=== PATIENT | female | born 1935 | race Hispanic/Latino ===

== ENCOUNTER 2017-05-11 22:26 | Emergency (ER) | payer MEDICARE ==
[~2017-05-11] VITALS: Ht 157.5 cm; Wt 59.9 kg
[~2017-05-11 22:26] MED LIST: MACROBID 100 M100 MG PO
[2017-05-11 23:27] LABS: STREPTOCOCCUS GRP A ANTIGEN NEGATIVE (NEGATIVE)
[2017-05-11 23:36] LABS: INFLUENZAE A&B ANTIGEN (RAPID) NEGATIVE (NEGATIVE)
--- NOTE | 2017-05-12 00:25 | Diagnostic Imaging Report ---
EXAMINATION: CHEST 2 VIEWS INDICATION: Cough, congestion COMPARISON: None FINDINGS: TUBES and LINES: None. LUNGS: Lungs are well inflated. Lungs are clear. There is no evidence of pneumonia or pulmonary edema. PLEURA: No pleural effusion or pneumothorax. HEART AND MEDIASTINUM: The cardiomediastinal silhouette is unremarkable. There are atherosclerotic calcifications within the aorta. BONES AND SOFT TISSUES: No acute osseous lesion. 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 Soft tissues are unremarkable. UPPER ABDOMEN: No free air under the diaphragm. IMPRESSION: No acute thoracic abnormality. Signed by: Dr. Ellis Herrmann M.D. on 05/12/2017 12:21 AM
[2017-05-12 00:56] LABS: BILIRUBIN,URINE NEGATIVE (NEGATIVE); KETONES,URINE NEGATIVE (NEGATIVE); LEUKOCYTE ESTERASE ,URINE 2+ (NEGATIVE); NITRITE,URINE NEGATIVE (NEGATIVE); PROTEIN,URINE DIPSTICK NEGATIVE (NEGATIVE); URINE UROBILINOGEN 0.2 mg/dL (0.2 - 1)
[2017-05-12 00:57] LABS: CLARITY,URINE SL CLOUDY (CLEAR); COLOR,URINE YELLOW (YELLOW)
[2017-05-12 01:04] LABS: BACTERIA,URINE MODERATE /HPF; EPITHELIAL CELLS,URINE RARE /LPF; WBC,URINE (MAN) >50 /HPF (0-5)
[2017-05-12] MEDS ORDERED: CEFTRIAXONE SOD 1 GM VIAL IM ONE (02:15)
[2017-05-12] MEDS ORDERED: LIDOCAINE HCL 1% LOCAL INJ 20 ML VIAL ONE (02:25)
== END 2017-05-12 03:08 | disposition home or self-care (01) ==
LOC: ER 22:26
DX: R50.9 Fever, unspecified (principal); N30.91 Cystitis, unspecified with hematuria
CPT/HCPCS: 71046; 81001; 83518; 87070; 87400; 96372; 99283; J0696; J2001

== ENCOUNTER → 2018-02-06 | Day surgery (SDC) | payer MEDICARE ==
[2018-02-04 10:54] LABS: BASOPHILS % 0.5 % (0.0-1.0); EOSINOPHILS % 0.6 % (0.0-6.0); LYMPHOCYTES # (AUTO) 1.8 (1.0-3.2); LYMPHOCYTES % 29.2 % (18.0-39.1); MEAN CORPUSCULAR HEMOGLOBIN 31.2 pg (28-32); MEAN CORPUSCULAR HGB CONC 32.5 g/dL (31-35); MEAN CORPUSCULAR VOLUME 95.9 fL (81-99); MONOCYTES # (AUTO) 0.3 (0.2-0.8); MONOCYTES % 4.9 % (4.4-11.3); NEUTROPHILS % 64.6 % (38.7-80.0); PLATELET COUNT 218 x10e3/uL (140-360); RED BLOOD COUNT 4.17 x10e6/uL (3.6-5.1)
[~2018-02-06] MED LIST changes: +FENTANYL CITRATE/PF 100MCG/2 ML INJ ONE; +LEVOTHYROXINE50 MCG PO; +LIDOCAINE HCL 2% LOCAL INJ 5 ML SDV VIAL INJ ONE; +LOSARTAN POTAS100 MG PO; +PROPOFOL IV EMULSION 10 MG/ML 20 ML VIAL ONE; +ULTRAM50 MG PO
--- OUTSIDE RECORDS SUMMARY | 2018-02-06 05:57 | XMS REPORT ---
Author Author [facility] [place] Address Unknown Phone Unavailable Care Team Providers Care Senior Policy Associate Name Role Phone Lizabeth VELÁZQUEZ Unavailable Unavailable Problems This patient has no known problems. Allergies, Adverse Reactions, Alerts This patient has no known allergies or adverse reactions. Medications This patient has no known medications. Results Test Description Test Time Test Comments Text Results Atomic Results Result Comments CHEST 2 VIEWS [place] [address] Patient Name: ELVI WASSERMAN MR #: [id number] : 1935 Age/Sex: 81/F Req #: [id number] Adm Physician: Ordered by: CHELSEA VELÁZQUEZ MD Report #: [id number] Location: ER Room/Bed: Procedure: [id number] DX/CHEST 2 VIEWS Exam Date: 05/12/17 Exam Time: 0000 REPORT STATUS: Signed EXAMINATION: CHEST 2 VIEWS INDICATION: Cough, congestion COMPARISON: None FINDINGS: TUBES and LINES: None. LUNGS: Lungs are well inflated. Lungs are clear. There is no evidence of pneumonia or pulmonary edema. PLEURA: No pleural effusion or pneumothorax. HEART AND MEDIASTINUM: The cardiomediastinal silhouette is unremarkable. There are atherosclerotic calcifications within the aorta. BONES AND SOFT TISSUES: No acute osseous lesion. 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 Soft tissues are unremarkable. UPPER ABDOMEN: No free air under the diaphragm. IMPRESSION: No acute thoracic abnormality. Signed by: Dr. Ellis Herrmann M.D. on 05/12/2017 12:21 AM Dictated By: ELLIS VALDEZ MD Transcribed By: MORIS on 05/12/1720 COPY TO: CHELSEA VELÁZQUEZ MD
[2018-02-06 08:35] VITALS: BP 182/67
== END | disposition home or self-care (01) ==
LOC: OR 05:55
PROVIDERS: ATTEND Internal Medicine Gastroenterology
DX: K52.9 Noninfective gastroenteritis and colitis, unspecified (principal); K44.9 Diaphragmatic hernia without obstruction or gangrene; K22.70 Barrett's esophagus without dysplasia; K29.50 Unspecified chronic gastritis without bleeding; K31.9 Disease of stomach and duodenum, unspecified; K29.80 Duodenitis without bleeding; D12.4 Benign neoplasm of descending colon; D12.3 Benign neoplasm of transverse colon; K64.4 Residual hemorrhoidal skin tags; K57.30 Diverticulosis of large intestine without perforation or abscess without bleeding; K64.8 Other hemorrhoids; R63.4 Abnormal weight loss; I11.0 Hypertensive heart disease with heart failure; I50.9 Heart failure, unspecified; I25.119 Atherosclerotic heart disease of native coronary artery with unspecified angina pectoris; E03.9 Hypothyroidism, unspecified; Z01.810 Encounter for preprocedural cardiovascular examination; Z01.812 Encounter for preprocedural laboratory examination; Z95.0 Presence of cardiac pacemaker
CPT/HCPCS: 36415; 43239; 45380; 45385; 85025; 88305; 88312; 93005; J2001; J2704

== ENCOUNTER 2020-12-11 15:31 | Inpatient (IN) | payer MEDICARE ==
[~2020-12-11] VITALS: Ht 157.5 cm; Wt 59.9 kg
[~2020-12-11 15:31] MED LIST changes: -FENTANYL CITRATE/PF 100MCG/2 ML INJ ONE; -LIDOCAINE HCL 2% LOCAL INJ 5 ML SDV VIAL INJ ONE; -PROPOFOL IV EMULSION 10 MG/ML 20 ML VIAL ONE
[2020-12-11] MEDS ORDERED: ATORVASTATIN CA20 MG PO (15:45)
[2020-12-11] MEDS ORDERED: METOPROLOL TART25 MG PO (15:45)
[2020-12-11] MEDS ORDERED: BACTRIM DS TAB1 EACH PO (15:45)
[2020-12-11 16:03] LABS: BASOPHILS % 0.2 % (0.0-1.0); EOSINOPHILS % 0.1 % (0.0-6.0); HEMATOCRIT 33.4 % (34.2-44.1); HEMOGLOBIN 10.6 g/dL (12.0-16.0); LYMPHOCYTES % 5.9 % (18.0-39.1); MEAN CORPUSCULAR HEMOGLOBIN 28.7 pg (28-32); MEAN CORPUSCULAR HGB CONC 31.7 g/dL (31-35); MEAN CORPUSCULAR VOLUME 90.5 fL (81-99); MONOCYTES # (AUTO) 0.8 (0.2-0.8); MONOCYTES % 5.1 % (4.4-11.3); NEUTROPHILS # (AUTO) 14.2 (2.1-6.9); NEUTROPHILS % 88.2 % (38.7-80.0); PLATELET COUNT 470 x10e3/uL (140-360); RED BLOOD COUNT 3.69 x10e6/uL (3.6-5.1); RED CELL DISTRIBUTION WIDTH 14.1 % (11.7-14.4)
[2020-12-11 16:14] LABS: INR 1.08; PROTHROMBIN TIME 14.2 seconds (11.9-14.5)
[2020-12-11 16:15] LABS: PARTIAL THROMBOPLASTIN TIME 31.3 seconds (23.8-35.5)
[2020-12-11 17:11] LABS: ALBUMIN 2.8 g/dL (3.5-5.0); ALBUMIN/GLOBULIN RATIO 0.9 (0.8-2.0); ANION GAP 16.1 mmol/L (8-16); CALCIUM 8.4 mg/dL (8.4-10.2); CREATININE, SERUM 0.55 mg/dL (0.57-1.11); POTASSIUM 3.1 mmol/L (3.5-5.1)
[2020-12-11] MEDS ORDERED: HEPARIN SOD (PORCINE) 5,000 UNIT/ML VIAL IV ONE ×2 (18:00→19:45)
[2020-12-11] MEDS ORDERED: MORPHINE SULFATE INJ 2 MG/ML SYR IV PRN (18:15)
[2020-12-11] MEDS ORDERED: ONDANSETRON HCL INJ 2MG/ML 2ML 2 MG/ML VIAL IV PRN (18:15)
[2020-12-11] MEDS ORDERED: KCL 20MEQ/.9 SOD CHL 1,000 ML IV ONE (18:15)
[2020-12-11] MEDS: LINEZOLID 600 MG/D5W 300ML 300 ML IV SCH (18:34)
[2020-12-11 18:40] LABS: CREATINE KINASE MB 1.5 ng/mL (0-5.0)
[2020-12-11] MEDS: HEPARIN 25,000 UNIT 1,000 UNIT in DEXTROSE 5% 250ML 250 ML IV SCH (18:52)
[2020-12-11] MEDS: FAMOTIDINE 20 MG/2 ML VIAL IV SCH (19:01)
[2020-12-11 19:15] LABS: CLARITY,URINE HAZY (CLEAR); COLOR,URINE YELLOW (YELLOW); KETONES,URINE 2+ (NEGATIVE); LEUKOCYTE ESTERASE ,URINE NEGATIVE (NEGATIVE); NITRITE,URINE NEGATIVE (NEGATIVE); PROTEIN,URINE DIPSTICK NEGATIVE (NEGATIVE); URINE UROBILINOGEN 2 mg/dL (0.2 - 1)
[2020-12-11 19:17] LABS: BACTERIA,URINE FEW /HPF; EPITHELIAL CELLS,URINE FEW /LPF; RENAL EPITHELIAL CELLS,URINE FEW
[2020-12-11] MEDS: PIPERACILLIN/TAZOBACTAM 3.375 GM in SODIUM CHLORIDE 0.9% 50ML 50 ML IV SCH ×2 (19:24→23:31)
[2020-12-11] MEDS ORDERED: HEPARIN 25,000 UNIT DRIP IV ONE (19:43)
[2020-12-11 20:26] VITALS: BP 127/55
[2020-12-11 20:27] VITALS: BP 127/55
[2020-12-11 21:59] VITALS: BP 127/55
[2020-12-12] VITALS (8 sets, daily range): BP systolic 123–153; BP diastolic 55–69
[2020-12-12 00:58] LABS: CREATINE KINASE MB 1.2 ng/mL (0-5.0)
[2020-12-12] MEDS: FAMOTIDINE 20 MG/2 ML VIAL IV SCH ×2 (05:36→17:11)
[2020-12-12] MEDS: PIPERACILLIN/TAZOBACTAM 3.375 GM in SODIUM CHLORIDE 0.9% 50ML 50 ML IV SCH ×3 (05:36→17:11)
[2020-12-12 08:39] LABS: BASOPHILS % 0.4 % (0.0-1.0); EOSINOPHILS % 0.2 % (0.0-6.0); LYMPHOCYTES # (AUTO) 1.1 (1.0-3.2); LYMPHOCYTES % 11.1 % (18.0-39.1); MEAN CORPUSCULAR HEMOGLOBIN 28.3 pg (28-32); MEAN CORPUSCULAR HGB CONC 32.1 g/dL (31-35); MEAN CORPUSCULAR VOLUME 88.1 fL (81-99); MONOCYTES # (AUTO) 0.7 (0.2-0.8); MONOCYTES % 6.5 % (4.4-11.3); NEUTROPHILS # (AUTO) 8.2 (2.1-6.9); NEUTROPHILS % 81.2 % (38.7-80.0); PLATELET COUNT 322 x10e3/uL (140-360); RED BLOOD COUNT 3.18 x10e6/uL (3.6-5.1)
[2020-12-12] MEDS: ASPIRIN 81 MG ENTERIC COATED PO SCH (09:00)
[2020-12-12 09:02] LABS: ALBUMIN 2.4 g/dL (3.5-5.0); ALBUMIN/GLOBULIN RATIO 0.9 (0.8-2.0); ANION GAP 12.5 mmol/L (8-16); CHOL/HDL RATIO 2.2 (3.0-3.6); CREATININE, SERUM 0.55 mg/dL (0.57-1.11); POTASSIUM 3.5 mmol/L (3.5-5.1)
[2020-12-12 09:09] LABS: CREATINE KINASE MB 1.1 ng/mL (0-5.0)
[2020-12-12] MEDS: LINEZOLID 600 MG/D5W 300ML 300 ML IV SCH ×2 (09:24→21:00)
[2020-12-12 14:45] LABS: CREATINE KINASE MB 1.1 ng/mL (0-5.0)
[2020-12-12] MEDS: HEPARIN 25,000 UNIT 1,000 UNIT in DEXTROSE 5% 250ML 250 ML IV SCH (23:00)
[2020-12-13] VITALS (7 sets, daily range): BP systolic 136–179; BP diastolic 59–87
[2020-12-13] MEDS: PIPERACILLIN/TAZOBACTAM 3.375 GM in SODIUM CHLORIDE 0.9% 50ML 50 ML IV SCH ×4 (00:38→17:13)
[2020-12-13] MEDS: FAMOTIDINE 20 MG/2 ML VIAL IV SCH ×2 (05:40→17:13)
[2020-12-13] MEDS ORDERED: SODIUM CHLORIDE 0.9% 250ML 250 ML ONE (06:34)
[2020-12-13] MEDS: LINEZOLID 600 MG/D5W 300ML 300 ML IV SCH ×2 (09:00→21:41)
[2020-12-13] MEDS: ASPIRIN 81 MG ENTERIC COATED PO SCH (09:01)
[2020-12-13] MEDS: HEPARIN 25,000 UNIT 1,000 UNIT in DEXTROSE 5% 250ML 250 ML IV SCH (18:23)
[2020-12-14] VITALS (7 sets, daily range): BP systolic 127–154; BP diastolic 63–115
[2020-12-14] MEDS: PIPERACILLIN/TAZOBACTAM 3.375 GM in SODIUM CHLORIDE 0.9% 50ML 50 ML IV SCH ×5 (00:34→23:54)
[2020-12-14] MEDS: FAMOTIDINE 20 MG/2 ML VIAL IV SCH ×2 (05:11→17:41)
[2020-12-14 05:48] LABS: BASOPHILS % 0.5 % (0.0-1.0); EOSINOPHILS # (AUTO) 0.1 (0.0-0.4); EOSINOPHILS % 0.9 % (0.0-6.0); HEMATOCRIT 31.5 % (34.2-44.1); HEMOGLOBIN 9.8 g/dL (12.0-16.0); LYMPHOCYTES # (AUTO) 1.1 (1.0-3.2); LYMPHOCYTES % 14.2 % (18.0-39.1); MEAN CORPUSCULAR HGB CONC 31.1 g/dL (31-35); MONOCYTES # (AUTO) 0.5 (0.2-0.8); MONOCYTES % 5.9 % (4.4-11.3); NEUTROPHILS # (AUTO) 6.1 (2.1-6.9); NEUTROPHILS % 78.1 % (38.7-80.0); PLATELET COUNT 286 x10e3/uL (140-360); RED CELL DISTRIBUTION WIDTH 14.1 % (11.7-14.4)
[2020-12-14 06:03] LABS: ALANINE AMINOTRANSFERASE 11 IU/L (0-55); ALBUMIN 2.5 g/dL (3.5-5.0); ALBUMIN/GLOBULIN RATIO 0.9 (0.8-2.0); ALKALINE PHOSPHATASE 61 IU/L (40-150); ANION GAP 13.1 mmol/L (8-16); BLOOD UREA NITROGEN < 5 mg/dL (7-26); CALCIUM 8.4 mg/dL (8.4-10.2); CARBON DIOXIDE 23 mmol/L (22-29); CHLORIDE 103 mmol/L (98-107); CREATININE, SERUM 0.52 mg/dL (0.57-1.11); EST GLOMERULAR FILTRATION RATE 112 ML/MIN (60-); GLUCOSE 78 mg/dL (74-118); MAGNESIUM 1.8 MG/DL (1.3-2.1); POTASSIUM 3.1 mmol/L (3.5-5.1); SODIUM 136 mmol/L (136-145)
[2020-12-14 06:04] LABS: BUN/CREATININE RATIO 10 (6-25)
[2020-12-14] MEDS: ASPIRIN 81 MG ENTERIC COATED PO SCH (09:00)
[2020-12-14] MEDS ORDERED: PIPERACILLIN/TAZOBACTAM 3.375 GM VIAL ONE (10:50)
[2020-12-14] MEDS ORDERED: SODIUM CHLORIDE 0.9% 50ML 50 ML ONE (10:50)
[2020-12-14] MEDS ORDERED: HYDROMORPHONE 1MG/1ML INJ ONE (11:39)
[2020-12-14] MEDS: LINEZOLID 600 MG/D5W 300ML 300 ML IV SCH ×2 (12:26→20:47)
[2020-12-15] VITALS (9 sets, daily range): BP systolic 98–150; BP diastolic 56–78
[2020-12-15 05:36] LABS: BASOPHILS % 0.1 % (0.0-1.0); HEMATOCRIT 29.1 % (34.2-44.1); HEMOGLOBIN 9.2 g/dL (12.0-16.0); MEAN CORPUSCULAR HEMOGLOBIN 28.6 pg (28-32); MEAN CORPUSCULAR HGB CONC 31.6 g/dL (31-35); MEAN CORPUSCULAR VOLUME 90.4 fL (81-99); MONOCYTES # (AUTO) 0.4 (0.2-0.8); MONOCYTES % 5.4 % (4.4-11.3); NEUTROPHILS # (AUTO) 5.7 (2.1-6.9); NEUTROPHILS % 80.1 % (38.7-80.0); PLATELET COUNT 261 x10e3/uL (140-360); RED BLOOD COUNT 3.22 x10e6/uL (3.6-5.1); RED CELL DISTRIBUTION WIDTH 13.9 % (11.7-14.4)
[2020-12-15] MEDS: PIPERACILLIN/TAZOBACTAM 3.375 GM in SODIUM CHLORIDE 0.9% 50ML 50 ML IV SCH ×4 (06:00→23:27)
[2020-12-15] MEDS: FAMOTIDINE 20 MG/2 ML VIAL IV SCH ×2 (06:00→17:16)
[2020-12-15 06:02] LABS: ALBUMIN 2.3 g/dL (3.5-5.0); ALBUMIN/GLOBULIN RATIO 0.9 (0.8-2.0); ANION GAP 13.6 mmol/L (8-16); CALCIUM 8.3 mg/dL (8.4-10.2); CREATININE, SERUM 0.48 mg/dL (0.57-1.11); POTASSIUM 3.6 mmol/L (3.5-5.1)
[2020-12-15] MEDS: ASPIRIN 81 MG ENTERIC COATED PO SCH (10:00)
[2020-12-15] MEDS: LINEZOLID 600 MG/D5W 300ML 300 ML IV SCH ×2 (10:00→20:42)
[2020-12-16 05:02] VITALS: BP 135/62
[2020-12-16] MEDS: FAMOTIDINE 20 MG/2 ML VIAL IV SCH ×2 (06:07→18:00)
[2020-12-16] MEDS: PIPERACILLIN/TAZOBACTAM 3.375 GM in SODIUM CHLORIDE 0.9% 50ML 50 ML IV SCH ×3 (06:07→18:00)
[2020-12-16 07:42] VITALS: BP 150/60
[2020-12-16] MEDS: ASPIRIN 81 MG ENTERIC COATED PO SCH (09:19)
[2020-12-16] MEDS: LINEZOLID 600 MG/D5W 300ML 300 ML IV SCH ×2 (09:19→20:34)
[2020-12-16 12:03] VITALS: BP 149/65
[2020-12-16 16:04] VITALS: BP 143/58
[2020-12-16 19:39] VITALS: BP 117/49
[2020-12-16] MEDS: HYDROCODONE/APAP 5MG-325MG TAB PO PRN (20:35)
[2020-12-16 21:02] VITALS: BP 117/49
[2020-12-17] VITALS (7 sets, daily range): BP systolic 124–146; BP diastolic 57–68
[2020-12-17] MEDS: PIPERACILLIN/TAZOBACTAM 3.375 GM in SODIUM CHLORIDE 0.9% 50ML 50 ML IV SCH ×5 (05:50→18:43)
[2020-12-17] MEDS: FAMOTIDINE 20 MG/2 ML VIAL IV SCH ×2 (05:51→18:43)
[2020-12-17] MEDS: LINEZOLID 600 MG/D5W 300ML 300 ML IV SCH ×2 (09:01→20:02)
[2020-12-17] MEDS: ASPIRIN 81 MG ENTERIC COATED PO SCH (09:01)
[2020-12-17] MEDS: HYDROCODONE/APAP 5MG-325MG TAB PO PRN (09:09)
[2020-12-17] MEDS ORDERED: FLECAINIDE ACE100 MG PO (18:01)
[2020-12-17] MEDS ORDERED: BAYER WOMEN'S1 EACH PO (18:06)
[2020-12-17] MEDS ORDERED: IRON18 MG PO (18:06)
[2020-12-17] MEDS ORDERED: METOPROLOL TART25 MG PO (18:13)
[2020-12-17] MEDS ORDERED: ARAVA20 MG PO (18:13)
[2020-12-17] MEDS ORDERED: D3 + K2 DOTS 11 EACH (18:13)
[2020-12-17] MEDS ORDERED: SODIUM BICARBO650 MG PO (18:13)
[2020-12-17] MEDS ORDERED: ELIQUIS5 MG PO (18:13)
[2020-12-18] VITALS (8 sets, daily range): BP systolic 122–137; BP diastolic 60–71
[2020-12-18] MEDS: FAMOTIDINE 20 MG/2 ML VIAL IV SCH ×2 (05:09→17:41)
[2020-12-18] MEDS: PIPERACILLIN/TAZOBACTAM 3.375 GM in SODIUM CHLORIDE 0.9% 50ML 50 ML IV SCH ×6 (05:09→23:41)
[2020-12-18 05:26] LABS: BASOPHILS % 0.6 % (0.0-1.0); EOSINOPHILS # (AUTO) 0.1 (0.0-0.4); EOSINOPHILS % 2.7 % (0.0-6.0); HEMOGLOBIN 9.7 g/dL (12.0-16.0); LYMPHOCYTES # (AUTO) 1.3 (1.0-3.2); LYMPHOCYTES % 26.5 % (18.0-39.1); MEAN CORPUSCULAR HEMOGLOBIN 28.4 pg (28-32); MEAN CORPUSCULAR HGB CONC 31.3 g/dL (31-35); MEAN CORPUSCULAR VOLUME 90.6 fL (81-99); MONOCYTES # (AUTO) 0.2 (0.2-0.8); MONOCYTES % 4.9 % (4.4-11.3); NEUTROPHILS # (AUTO) 3.2 (2.1-6.9); NEUTROPHILS % 65.1 % (38.7-80.0); PLATELET COUNT 203 x10e3/uL (140-360); RED BLOOD COUNT 3.42 x10e6/uL (3.6-5.1); RED CELL DISTRIBUTION WIDTH 14.4 % (11.7-14.4)
[2020-12-18 05:49] LABS: ALBUMIN 2.5 g/dL (3.5-5.0); ANION GAP 11.8 mmol/L (8-16); CALCIUM 8.2 mg/dL (8.4-10.2); CREATININE, SERUM 0.51 mg/dL (0.57-1.11)
[2020-12-18 06:27] LABS: POTASSIUM 2.8 mmol/L (3.5-5.1)
[2020-12-18] MEDS ORDERED: POTASSIUM CHLORIDE 20 MEQ TAB CR PO ONE ×2 (06:45→10:45)
[2020-12-18] MEDS: LINEZOLID 600 MG/D5W 300ML 300 ML IV SCH ×2 (09:41→21:37)
[2020-12-18] MEDS: ASPIRIN 81 MG ENTERIC COATED PO SCH (09:41)
[2020-12-18] MEDS ORDERED: POTASSIUM CHLORIDE 20 MEQ TAB CR PO NR (14:00)
[2020-12-19] VITALS (8 sets, daily range): BP systolic 115–145; BP diastolic 59–66
[2020-12-19] MEDS: PIPERACILLIN/TAZOBACTAM 3.375 GM in SODIUM CHLORIDE 0.9% 50ML 50 ML IV SCH ×4 (05:22→23:47)
[2020-12-19] MEDS: FAMOTIDINE 20 MG/2 ML VIAL IV SCH ×2 (05:51→17:04)
[2020-12-19 07:48] LABS: ALBUMIN 2.4 g/dL (3.5-5.0); ALBUMIN/GLOBULIN RATIO 0.9 (0.8-2.0); ANION GAP 10.5 mmol/L (8-16); CALCIUM 8.3 mg/dL (8.4-10.2); CREATININE, SERUM 0.5 mg/dL (0.57-1.11); MAGNESIUM 1.8 MG/DL (1.3-2.1); POTASSIUM 3.5 mmol/L (3.5-5.1)
[2020-12-19] MEDS: LINEZOLID 600 MG/D5W 300ML 300 ML IV SCH ×2 (08:52→21:09)
[2020-12-19] MEDS: ASPIRIN 81 MG ENTERIC COATED PO SCH (08:52)
[2020-12-19] MEDS: HYDROCODONE/APAP 5MG-325MG TAB PO PRN (15:00)
[2020-12-20] VITALS: BP 115/56
[2020-12-20 05:02] VITALS: BP 123/54
[2020-12-20] MEDS: PIPERACILLIN/TAZOBACTAM 3.375 GM in SODIUM CHLORIDE 0.9% 50ML 50 ML IV SCH ×3 (05:30→17:14)
[2020-12-20] MEDS: FAMOTIDINE 20 MG/2 ML VIAL IV SCH ×2 (05:54→17:14)
[2020-12-20 07:49] VITALS: BP 124/68
[2020-12-20] MEDS: ASPIRIN 81 MG ENTERIC COATED PO SCH (09:13)
[2020-12-20] MEDS: LINEZOLID 600 MG/D5W 300ML 300 ML IV SCH ×2 (09:13→20:05)
[2020-12-20 11:48] VITALS: BP 124/57
[2020-12-20] MEDS: HYDROCODONE/APAP 5MG-325MG TAB PO PRN (12:24)
[2020-12-20 15:56] VITALS: BP 128/69
[2020-12-20 20:00] VITALS: BP 135/56
[2020-12-21] VITALS: BP 118/51
[2020-12-21] MEDS: PIPERACILLIN/TAZOBACTAM 3.375 GM in SODIUM CHLORIDE 0.9% 50ML 50 ML IV SCH ×3 (00:21→12:22)
[2020-12-21 04:00] VITALS: BP 122/62
[2020-12-21] MEDS: FAMOTIDINE 20 MG/2 ML VIAL IV SCH ×2 (05:25→17:43)
[2020-12-21 07:42] VITALS: BP 130/67
[2020-12-21] MEDS: ASPIRIN 81 MG ENTERIC COATED PO SCH (09:33)
[2020-12-21] MEDS: LINEZOLID 600 MG/D5W 300ML 300 ML IV SCH (09:33)
[2020-12-21 11:11] VITALS: BP 124/54
[2020-12-21 11:51] VITALS: BP 124/54
[2020-12-21 15:28] VITALS: BP 122/59
[2020-12-21] MEDS ORDERED: ATORVASTATIN 20 MG TAB PO SCH (21:00)
== END 2020-12-21 18:24 | DRG 240 ==
LOC: ER 15:59 → ERHOLD 18:13 → MED/SURG3 20:06
PROVIDERS: ADMIT Internal Medicine; ATTEND Internal Medicine
PROC: 0Y6J0Z1 Detachment at Left Lower Leg, High, Open Approach (ICD-10-PCS; principal; 2020-12-11)
DX: E11.52 Type 2 diabetes mellitus with diabetic peripheral angiopathy with gangrene (principal); I96 Gangrene, not elsewhere classified; N39.0 Urinary tract infection, site not specified; E78.5 Hyperlipidemia, unspecified; E03.9 Hypothyroidism, unspecified; Z96.641 Presence of right artificial hip joint; D64.9 Anemia, unspecified; E87.6 Hypokalemia; K21.9 Gastro-esophageal reflux disease without esophagitis; Z79.899 Other long term (current) drug therapy
CPT/HCPCS: 36415; 71045; 80053; 80061; 81001; 82550; 82553; 83605; 83735; 84484; 85025; 85610; 85730; 87040; 87086; 87186; 88307; 88311; 93005; 93925; 93970; 97139; 99284; J1170; J1644; J2020; J2270; J2405; J2543; J7050; U0002

== ENCOUNTER 2022-05-22 15:38 | Inpatient (IN) | payer MEDICARE ==
[~2022-05-22] VITALS: Ht 157.5 cm; Wt 45.1 kg
[~2022-05-22 15:38] MED LIST changes: +ARAVA20 MG PO; +ATORVASTATIN CA20 MG PO; +BACTRIM DS TAB1 EACH PO; +BAYER WOMEN'S1 EACH PO; +D3 + K2 DOTS 11 EACH; +ELIQUIS5 MG PO; +FLECAINIDE ACE100 MG PO; +IRON18 MG PO; +METOPROLOL TART25 MG PO; +SODIUM BICARBO650 MG PO
[2022-05-22] MEDS ORDERED: SODIUM CHLORIDE FLUSH 10 ML SYR INJ PRN (16:15)
[2022-05-22] MEDS ORDERED: BISMUTH SUBSALICYLATE 262 MG/15 ML 8OZ BTL PO PRN (16:30)
[2022-05-22] MEDS ORDERED: MAGNESIUM HYDROXIDE 30 ML UDC PO PRN (16:30)
[2022-05-22] MEDS ORDERED: ASPIRIN81 MG PO (17:10)
[2022-05-22] MEDS ORDERED: LOSARTAN POTAS100 MG PO (17:10)
[2022-05-22] MEDS ORDERED: santyl TOP (17:10)
[2022-05-22] MEDS ORDERED: CEPHALEXIN500 MG PO (17:11)
[2022-05-22 17:43] LABS: BASOPHILS % 0.3 % (0.0-1.0); EOSINOPHILS # (AUTO) 0.1 (0.0-0.4); EOSINOPHILS % 1.4 % (0.0-6.0); HEMATOCRIT 34.4 % (34.2-44.1); HEMOGLOBIN 10.5 g/dL (12.0-16.0); LYMPHOCYTES # (AUTO) 1.3 (1.0-3.2); LYMPHOCYTES % 19.8 % (18.0-39.1); MEAN CORPUSCULAR HEMOGLOBIN 26.9 pg (28-32); MEAN CORPUSCULAR HGB CONC 30.5 g/dL (31-35); MONOCYTES # (AUTO) 0.3 (0.2-0.8); MONOCYTES % 5.2 % (4.4-11.3); NEUTROPHILS # (AUTO) 4.6 (2.1-6.9); NEUTROPHILS % 72.8 % (38.7-80.0); PLATELET COUNT 225 x10e3/uL (140-360); RED BLOOD COUNT 3.91 x10e6/uL (3.6-5.1); RED CELL DISTRIBUTION WIDTH 14.9 % (11.7-14.4)
[2022-05-22 18:04] LABS: ALBUMIN/GLOBULIN RATIO 0.8 (0.8-2.0); ANION GAP 14.8 mmol/L (8-16); CALCIUM 9.1 mg/dL (8.4-10.2); CREATININE, SERUM 0.62 mg/dL (0.57-1.11); POTASSIUM 3.8 mmol/L (3.5-5.1)
[2022-05-22] MEDS ORDERED: PNEUMOCOCCAL VACCINE POLYVALENT 23 MCG/0.5 ML VIAL IM SCH (18:09)
[2022-05-22] MEDS ORDERED: SODIUM CHLORIDE 0.9% 250ML 250 ML ONE (20:20)
[2022-05-22 20:39] VITALS: BP 132/49
[2022-05-22 21:30] VITALS: BP 132/49
[2022-05-23] VITALS (8 sets, daily range): BP systolic 125–169; BP diastolic 56–66
[2022-05-23] MEDS: LOSARTAN POTASSIUM 100 MG TAB PO SCH (08:59)
[2022-05-23] MEDS: LEVOTHYROXINE SODIUM 50 MCG TAB PO SCH (08:59)
[2022-05-23] MEDS: ASPIRIN 81 MG CHEW TAB PO SCH (08:59)
[2022-05-23] MEDS: ACETAMINOPHEN 325 MG TAB PO PRN (14:24)
[2022-05-23] MEDS: ATORVASTATIN 20 MG TAB PO SCH (20:30)
[2022-05-24] VITALS (14 sets, daily range): BP systolic 118–181; BP diastolic 52–78
[2022-05-24] MEDS ORDERED: ONDANSETRON HCL INJ 2MG/ML 2ML 2 MG/ML VIAL IV PRN (05:15)
[2022-05-24] MEDS: LEVOTHYROXINE SODIUM 50 MCG TAB PO SCH (07:30)
[2022-05-24] MEDS: LOSARTAN POTASSIUM 100 MG TAB PO SCH (09:00)
[2022-05-24] MEDS: PANTOPRAZOLE SOD 40 MG TABEC PO SCH (09:00)
[2022-05-24] MEDS: ASPIRIN 81 MG CHEW TAB PO SCH (09:00)
[2022-05-24] MEDS: DICYCLOMINE HCL 10 MG CAP PO SCH ×3 (09:00→21:58)
[2022-05-24] MEDS ORDERED: IOPAMIDOL 370 MG/ML 100 ML INFUS..BTL INJ ONE (12:45)
[2022-05-24] MEDS ORDERED: HEPARIN SOD/SOD CHLORIDE 2,000 ML ONE (12:45)
[2022-05-24] MEDS ORDERED: HEPARIN SOD (PORCINE) 1000 UNIT/ML 30ML ONE (12:45)
[2022-05-24] MEDS ORDERED: SODIUM CHLORIDE 0.9% 1000ML 1,000 ML ONE ×2 (12:46→14:14)
[2022-05-24] MEDS ORDERED: FENTANYL CITRATE/PF 100MCG/2 ML INJ ONE ×2 (13:22→15:39)
[2022-05-24] MEDS ORDERED: MIDAZOLAM HCL 2 MG/2 ML VIAL ONE (13:22)
[2022-05-24] MEDS ORDERED: IOPAMIDOL 610MG/1ML 300 MG/ML VIAL IV ONE ×3 (13:23→15:00)
[2022-05-24] MEDS ORDERED: LIDOCAINE HCL 1% LOCAL INJ 20 ML VIAL ONE (13:23)
[2022-05-24] MEDS ORDERED: VERAPAMIL HCL 2.5 MG/ML 2 ML VIAL ONE ×2 (13:55→14:16)
[2022-05-24] MEDS ORDERED: CLOPIDOGREL BISULFATE 75 MG TAB ONE (14:37)
[2022-05-24] MEDS ORDERED: Vancomycin IV 1 GM VIAL ONE (16:47)
[2022-05-24] MEDS ORDERED: SODIUM CHLORIDE 0.9% 250ML 250 ML ONE (16:47)
[2022-05-24] MEDS: ACETAMINOPHEN 325 MG TAB PO PRN (17:28)
[2022-05-24] MEDS ORDERED: ACETAMINOPHEN 325 MG TAB ONE (17:38)
[2022-05-24] MEDS: ATORVASTATIN 20 MG TAB PO SCH (21:58)
[2022-05-25] VITALS (8 sets, daily range): BP systolic 125–152; BP diastolic 60–69
[2022-05-25 05:01] LABS: BASOPHILS # (AUTO) 0.1 (0.0-0.1); BASOPHILS % 0.5 % (0.0-1.0); EOSINOPHILS % 0.1 % (0.0-6.0); HEMOGLOBIN 9.2 g/dL (12.0-16.0); LYMPHOCYTES % 9.5 % (18.0-39.1); MEAN CORPUSCULAR HEMOGLOBIN 26.7 pg (28-32); MEAN CORPUSCULAR HGB CONC 30.7 g/dL (31-35); MONOCYTES # (AUTO) 0.4 (0.2-0.8); MONOCYTES % 3.3 % (4.4-11.3); NEUTROPHILS # (AUTO) 9.1 (2.1-6.9); NEUTROPHILS % 86.2 % (38.7-80.0); PLATELET COUNT 183 x10e3/uL (140-360); RED BLOOD COUNT 3.45 x10e6/uL (3.6-5.1); RED CELL DISTRIBUTION WIDTH 14.8 % (11.7-14.4)
[2022-05-25 05:41] LABS: ALBUMIN 2.7 g/dL (3.5-5.0); ALBUMIN/GLOBULIN RATIO 0.8 (0.8-2.0); ANION GAP 16.8 mmol/L (8-16); CALCIUM 8.4 mg/dL (8.4-10.2); CREATININE, SERUM 0.52 mg/dL (0.57-1.11)
[2022-05-25 05:48] LABS: POTASSIUM 2.8 mmol/L (3.5-5.1)
[2022-05-25] MEDS: LOSARTAN POTASSIUM 100 MG TAB PO SCH (10:02)
[2022-05-25] MEDS: ASPIRIN 81 MG CHEW TAB PO SCH (10:02)
[2022-05-25] MEDS: PANTOPRAZOLE SOD 40 MG TABEC PO SCH (10:02)
[2022-05-25] MEDS: DICYCLOMINE HCL 10 MG CAP PO SCH ×3 (10:02→22:10)
[2022-05-25] MEDS: LEVOTHYROXINE SODIUM 50 MCG TAB PO SCH (10:03)
[2022-05-25] MEDS ORDERED: LEVOFLOXACIN 500MG/D5W 100ML 100 ML IV SCH (13:00)
[2022-05-25] MEDS: ATORVASTATIN 20 MG TAB PO SCH (22:11)
[2022-05-26] VITALS (8 sets, daily range): BP systolic 116–148; BP diastolic 52–64
[2022-05-26 06:21] LABS: BASOPHILS % 0.5 % (0.0-1.0); EOSINOPHILS # (AUTO) 0.1 (0.0-0.4); EOSINOPHILS % 1.4 % (0.0-6.0); HEMATOCRIT 25.9 % (34.2-44.1); LYMPHOCYTES # (AUTO) 1.1 (1.0-3.2); LYMPHOCYTES % 13.7 % (18.0-39.1); MEAN CORPUSCULAR HEMOGLOBIN 26.7 pg (28-32); MEAN CORPUSCULAR HGB CONC 30.9 g/dL (31-35); MEAN CORPUSCULAR VOLUME 86.3 fL (81-99); MONOCYTES # (AUTO) 0.5 (0.2-0.8); MONOCYTES % 6.2 % (4.4-11.3); NEUTROPHILS # (AUTO) 6.3 (2.1-6.9); NEUTROPHILS % 77.8 % (38.7-80.0); PLATELET COUNT 179 x10e3/uL (140-360); RED CELL DISTRIBUTION WIDTH 14.7 % (11.7-14.4)
[2022-05-26 06:52] LABS: ALBUMIN 2.5 g/dL (3.5-5.0); ALBUMIN/GLOBULIN RATIO 0.8 (0.8-2.0); ANION GAP 11.5 mmol/L (8-16); CALCIUM 8.3 mg/dL (8.4-10.2); CREATININE, SERUM 0.51 mg/dL (0.57-1.11)
[2022-05-26 06:58] LABS: POTASSIUM 2.5 mmol/L (3.5-5.1)
[2022-05-26] MEDS ORDERED: POTASSIUM CHLORIDE 20 MEQ TAB CR PO ONE ×2 (08:00→12:00)
[2022-05-26] MEDS: LEVOTHYROXINE SODIUM 50 MCG TAB PO SCH (08:30)
[2022-05-26] MEDS: PANTOPRAZOLE SOD 40 MG TABEC PO SCH (08:44)
[2022-05-26] MEDS: DICYCLOMINE HCL 10 MG CAP PO SCH ×3 (08:44→21:01)
[2022-05-26] MEDS: ASPIRIN 81 MG CHEW TAB PO SCH (08:44)
[2022-05-26] MEDS: LOSARTAN POTASSIUM 100 MG TAB PO SCH (08:44)
[2022-05-26] MEDS ORDERED: ONDANSETRON HCL 4 MG ORAL DISINTEGRATING TAB SL PRN (10:15)
[2022-05-26] MEDS: LEVOFLOXACIN 500 MG TAB PO SCH (12:48)
[2022-05-26] MEDS: LOPERAMIDE HCL 2 MG CAP PO PRN (14:55)
[2022-05-26] MEDS: ATORVASTATIN 20 MG TAB PO SCH (21:01)
[2022-05-27] VITALS (8 sets, daily range): BP systolic 102–115; BP diastolic 46–57
[2022-05-27 06:41] LABS: BASOPHILS % 0.1 % (0.0-1.0); EOSINOPHILS % 0.4 % (0.0-6.0); HEMATOCRIT 27.8 % (34.2-44.1); HEMOGLOBIN 8.4 g/dL (12.0-16.0); LYMPHOCYTES # (AUTO) 0.8 (1.0-3.2); LYMPHOCYTES % 9.7 % (18.0-39.1); MEAN CORPUSCULAR HEMOGLOBIN 26.6 pg (28-32); MEAN CORPUSCULAR HGB CONC 30.2 g/dL (31-35); MONOCYTES # (AUTO) 0.2 (0.2-0.8); MONOCYTES % 2.9 % (4.4-11.3); NEUTROPHILS # (AUTO) 7.2 (2.1-6.9); NEUTROPHILS % 86.5 % (38.7-80.0); PLATELET COUNT 175 x10e3/uL (140-360); RED BLOOD COUNT 3.16 x10e6/uL (3.6-5.1); RED CELL DISTRIBUTION WIDTH 15.2 % (11.7-14.4)
[2022-05-27 07:08] LABS: ALBUMIN 2.5 g/dL (3.5-5.0); ALBUMIN/GLOBULIN RATIO 0.9 (0.8-2.0); CALCIUM 8.2 mg/dL (8.4-10.2); CREATININE, SERUM 0.53 mg/dL (0.57-1.11)
[2022-05-27] MEDS: LOSARTAN POTASSIUM 100 MG TAB PO SCH (08:42)
[2022-05-27] MEDS: ASPIRIN 81 MG CHEW TAB PO SCH (08:42)
[2022-05-27] MEDS: LEVOTHYROXINE SODIUM 50 MCG TAB PO SCH (08:43)
[2022-05-27] MEDS: DICYCLOMINE HCL 10 MG CAP PO SCH ×3 (08:43→20:50)
[2022-05-27] MEDS: PANTOPRAZOLE SOD 40 MG TABEC PO SCH (08:43)
[2022-05-27] MEDS: LEVOFLOXACIN 500 MG TAB PO SCH (11:44)
[2022-05-27] MEDS: ATORVASTATIN 20 MG TAB PO SCH (20:50)
[2022-05-28] VITALS: BP 119/57
[2022-05-28 04:00] VITALS: BP 119/66
[2022-05-28 08:26] VITALS: BP 121/57
[2022-05-28 08:32] VITALS: BP 121/57
[2022-05-28] MEDS: LEVOTHYROXINE SODIUM 50 MCG TAB PO SCH (09:22)
[2022-05-28] MEDS: LEVOFLOXACIN 500 MG TAB PO SCH (09:22)
[2022-05-28] MEDS: DICYCLOMINE HCL 10 MG CAP PO SCH (09:22)
[2022-05-28] MEDS: ASPIRIN 81 MG CHEW TAB PO SCH (09:24)
[2022-05-28] MEDS: LOSARTAN POTASSIUM 100 MG TAB PO SCH (09:25)
[2022-05-28] MEDS: PANTOPRAZOLE SOD 40 MG TABEC PO SCH (09:25)
[2022-05-28] MEDS: LOPERAMIDE HCL 2 MG CAP PO PRN (09:27)
[2022-05-28] MEDS ORDERED: LEVOFLOXACIN250 MG PO (10:07)
== END 2022-05-28 10:45 | disposition home or self-care (01) | DRG 271 ==
LOC: MED/SURG2 15:38
PROVIDERS: ADMIT Internal Medicine; ATTEND Internal Medicine
PROC: B4101ZZ Fluoroscopy of Abdominal Aorta using Low Osmolar Contrast (ICD-10-PCS; principal; 2022-05-25)
PROC: 047P3ZZ Dilation of Right Anterior Tibial Artery, Percutaneous Approach (ICD-10-PCS; 2022-05-25)
PROC: 0SB Lower Joints, Excision (ICD-10-PCS; 2022-05-25)
PROC: B41F1ZZ Fluoroscopy of Right Lower Extremity Arteries using Low Osmolar Contrast (ICD-10-PCS; 2022-05-25)
PROC: 04CP3ZZ Extirpation of Matter from Right Anterior Tibial Artery, Percutaneous Approach (ICD-10-PCS; 2022-05-25)
DX: E11.51 Type 2 diabetes mellitus with diabetic peripheral angiopathy without gangrene (principal); M86.9 Osteomyelitis, unspecified; I10 Essential (primary) hypertension; E78.5 Hyperlipidemia, unspecified; D64.9 Anemia, unspecified; E03.9 Hypothyroidism, unspecified; E11.69 Type 2 diabetes mellitus with other specified complication; E11.40 Type 2 diabetes mellitus with diabetic neuropathy, unspecified; L97.519 Non-pressure chronic ulcer of other part of right foot with unspecified severity; Z20.822 Contact with and (suspected) exposure to COVID-19; Z87.891 Personal history of nicotine dependence; Z96.641 Presence of right artificial hip joint; Z89.512 Acquired absence of left leg below knee
CPT/HCPCS: 36247; 36415; 37228; 37232; 71045; 75625; 75710; 80053; 82948; 83735; 85025; 87071; 87186; 87205; 93005; 93922; 93925; 99152; 99153; 99252; C1724; C1725; C1769; C1887; C1894; J1644; J1956; J2001; J2250; J2543; J7030; J7050; Q9967

== ENCOUNTER 2022-08-04 07:05 | Inpatient (IN) | payer MEDICARE ==
[2022-08-01 10:29] LABS: BASOPHILS % 0.5 % (0.0-1.0); EOSINOPHILS % 0.5 % (0.0-6.0); HEMATOCRIT 34.3 % (34.2-44.1); LYMPHOCYTES # (AUTO) 1.5 (1.0-3.2); LYMPHOCYTES % 18.6 % (18.0-39.1); MEAN CORPUSCULAR HGB CONC 29.2 g/dL (31-35); MEAN CORPUSCULAR VOLUME 89.1 fL (81-99); MONOCYTES # (AUTO) 0.4 (0.2-0.8); MONOCYTES % 5.2 % (4.4-11.3); NEUTROPHILS # (AUTO) 6.2 (2.1-6.9); NEUTROPHILS % 74.8 % (38.7-80.0); PLATELET COUNT 156 x10e3/uL (140-360); RED BLOOD COUNT 3.85 x10e6/uL (3.6-5.1); RED CELL DISTRIBUTION WIDTH 15.6 % (11.7-14.4)
[2022-08-01 10:39] LABS: ANION GAP 12.1 mmol/L (8-16); CREATININE, SERUM 0.56 mg/dL (0.57-1.11); POTASSIUM 4.1 mmol/L (3.5-5.1)
[~2022-08-04] VITALS: Ht 157.5 cm; Wt 44.9 kg
[~2022-08-04 07:05] MED LIST changes: +ASPIRIN81 MG PO; +CEPHALEXIN500 MG PO; +LEVOFLOXACIN250 MG PO; +santyl TOP
[2022-08-04] MEDS ORDERED: LACTATED RINGER'S 1,000 ML ONE (07:54)
[2022-08-04] MEDS ORDERED: CEFAZOLIN SODIUM 2 GM ONE (07:54)
[2022-08-04] MEDS ORDERED: BUPIVACAINE HCL 0.5% INJ 30 ML VIAL INJ ONE (08:52)
[2022-08-04] MEDS ORDERED: DEXAMETHASONE SOD PHOS INJ 4 MG/ML SDV ONE (08:52)
[2022-08-04] MEDS ORDERED: NEOSTIGMINE 1 MG/ML 10ML VIAL ONE (08:52)
[2022-08-04] MEDS ORDERED: FENTANYL CITRATE/PF 100MCG/2 ML INJ ONE (11:46)
[2022-08-04] MEDS ORDERED: MIDAZOLAM HCL 2 MG/2 ML VIAL ONE (11:46)
[2022-08-04] MEDS ORDERED: ROCURONIUM BROMIDE 10 MG/ML 5ML VIAL IV ONE (12:56)
[2022-08-04] MEDS ORDERED: LIDOCAINE HCL 2% LOCAL INJ 5 ML SDV VIAL INJ ONE (12:56)
[2022-08-04] MEDS ORDERED: KETOROLAC TROMETHAMINE 30 MG/ML VIAL ONE (12:56)
[2022-08-04] MEDS ORDERED: POVIDONE IODINE 0.05% 0.05 % ML PO ONE (12:56)
[2022-08-04] MEDS ORDERED: PROPOFOL IV EMULSION 10 MG/ML 20 ML VIAL ONE (12:56)
[2022-08-04] MEDS ORDERED: SEVOFLURANE INHAL SOLN 250 ML PEN BTL ONE (12:56)
[2022-08-04 13:30] VITALS: BP 147/57; PULSE 57; RESP 17; TEMP 97.6; O2SAT 100
[2022-08-04 13:39] VITALS: BP 147/57; PULSE 57; RESP 17; TEMP 97.6; O2SAT 100
[2022-08-04] MEDS ORDERED: BUPIVACAINE HCL 0.5% 10ML MPF VIAL INJ ONE (13:55)
[2022-08-04 16:38] VITALS: BP 146/45; PULSE 66; RESP 17; TEMP 98; O2SAT 100
[2022-08-04] MEDS ORDERED: SODIUM CHLORIDE 0.9% 250ML 250 ML ONE (16:51)
[2022-08-04 18:01] LABS: BASOPHILS % 0.4 % (0.0-1.0); EOSINOPHILS # (AUTO) 0.1 (0.0-0.4); EOSINOPHILS % 0.7 % (0.0-6.0); HEMATOCRIT 28.8 % (34.2-44.1); HEMOGLOBIN 8.5 g/dL (12.0-16.0); LYMPHOCYTES % 13.3 % (18.0-39.1); MEAN CORPUSCULAR HEMOGLOBIN 25.8 pg (28-32); MEAN CORPUSCULAR HGB CONC 29.5 g/dL (31-35); MEAN CORPUSCULAR VOLUME 87.5 fL (81-99); MONOCYTES # (AUTO) 0.4 (0.2-0.8); MONOCYTES % 4.9 % (4.4-11.3); NEUTROPHILS % 79.1 % (38.7-80.0); PLATELET COUNT 220 x10e3/uL (140-360); RED BLOOD COUNT 3.29 x10e6/uL (3.6-5.1); RED CELL DISTRIBUTION WIDTH 15.5 % (11.7-14.4)
[2022-08-04 18:13] LABS: ALBUMIN 2.8 g/dL (3.5-5.0); ALBUMIN/GLOBULIN RATIO 0.8 (0.8-2.0); ANION GAP 12.7 mmol/L (8-16); CALCIUM 8.5 mg/dL (8.4-10.2); CREATININE, SERUM 0.68 mg/dL (0.57-1.11); POTASSIUM 3.7 mmol/L (3.5-5.1)
[2022-08-04 19:30] VITALS: BP 135/46; PULSE 66; RESP 21; TEMP 98.2; O2SAT 100
[2022-08-04 21:21] VITALS: BP 135/46; PULSE 66; RESP 21; TEMP 98.2; O2SAT 100
[2022-08-05] VITALS (7 sets, daily range): BP systolic 114–153; BP diastolic 51–57; PULSE 72–89; RESP 17–21; TEMP 98–99.6; O2SAT 97–100
[2022-08-05] MEDS: TRAMADOL HCL 50 MG TAB PO PRN ×2 (11:52→21:04)
[2022-08-06] VITALS (8 sets, daily range): BP systolic 108–136; BP diastolic 44–57; PULSE 65–83; RESP 16–18; TEMP 97–98.9; O2SAT 94–100
[2022-08-06 06:39] LABS: BASOPHILS % 0.3 % (0.0-1.0); EOSINOPHILS # (AUTO) 0.1 (0.0-0.4); HEMATOCRIT 25.7 % (34.2-44.1); HEMOGLOBIN 7.6 g/dL (12.0-16.0); LYMPHOCYTES # (AUTO) 1.5 (1.0-3.2); MEAN CORPUSCULAR HEMOGLOBIN 25.7 pg (28-32); MEAN CORPUSCULAR HGB CONC 29.6 g/dL (31-35); MEAN CORPUSCULAR VOLUME 86.8 fL (81-99); MONOCYTES # (AUTO) 0.5 (0.2-0.8); MONOCYTES % 6.8 % (4.4-11.3); NEUTROPHILS # (AUTO) 4.9 (2.1-6.9); NEUTROPHILS % 70.8 % (38.7-80.0); PLATELET COUNT 245 x10e3/uL (140-360); RED BLOOD COUNT 2.96 x10e6/uL (3.6-5.1); RED CELL DISTRIBUTION WIDTH 15.8 % (11.7-14.4)
[2022-08-06 07:16] LABS: ALBUMIN 2.6 g/dL (3.5-5.0); ALBUMIN/GLOBULIN RATIO 0.8 (0.8-2.0); ANION GAP 12.3 mmol/L (8-16); CALCIUM 8.4 mg/dL (8.4-10.2); CREATININE, SERUM 0.53 mg/dL (0.57-1.11); POTASSIUM 3.3 mmol/L (3.5-5.1)
[2022-08-06 10:20] LABS: % IRON SATURATION 9 % (15-50); IRON 26 ug/dL (50-170); TOTAL IRON BINDING CAPACITY 300 ug/dL (261-478); TRANSFERRIN 214 mg/dL (180-382)
[2022-08-06] MEDS: LINEZOLID 600 MG/D5W 300ML 300 ML IV SCH ×2 (10:24→21:26)
[2022-08-06] MEDS: TRAMADOL HCL 50 MG TAB PO PRN ×2 (10:25→21:26)
[2022-08-06] MEDS ORDERED: POTASSIUM CHLORIDE 20 MEQ TAB CR PO ONE (10:30)
[2022-08-07] VITALS (7 sets, daily range): BP systolic 114–149; BP diastolic 52–61; PULSE 65–75; RESP 14–18; TEMP 97.3–98.4; O2SAT 97–100
[2022-08-07 06:27] LABS: BASOPHILS % 0.3 % (0.0-1.0); EOSINOPHILS # (AUTO) 0.1 (0.0-0.4); EOSINOPHILS % 1.2 % (0.0-6.0); HEMATOCRIT 25.8 % (34.2-44.1); HEMOGLOBIN 7.9 g/dL (12.0-16.0); LYMPHOCYTES # (AUTO) 1.3 (1.0-3.2); LYMPHOCYTES % 19.8 % (18.0-39.1); MEAN CORPUSCULAR HEMOGLOBIN 26.1 pg (28-32); MEAN CORPUSCULAR HGB CONC 30.6 g/dL (31-35); MEAN CORPUSCULAR VOLUME 85.1 fL (81-99); MONOCYTES # (AUTO) 0.4 (0.2-0.8); MONOCYTES % 5.6 % (4.4-11.3); NEUTROPHILS # (AUTO) 4.9 (2.1-6.9); NEUTROPHILS % 72.8 % (38.7-80.0); PLATELET COUNT 250 x10e3/uL (140-360); RED BLOOD COUNT 3.03 x10e6/uL (3.6-5.1); RED CELL DISTRIBUTION WIDTH 15.4 % (11.7-14.4)
[2022-08-07 06:34] LABS: ALBUMIN 2.4 g/dL (3.5-5.0); ALBUMIN/GLOBULIN RATIO 0.7 (0.8-2.0); ANION GAP 11.1 mmol/L (8-16); CALCIUM 8.4 mg/dL (8.4-10.2); CREATININE, SERUM 0.52 mg/dL (0.57-1.11); POTASSIUM 4.1 mmol/L (3.5-5.1)
[2022-08-07] MEDS: LINEZOLID 600 MG/D5W 300ML 300 ML IV SCH ×2 (09:21→22:31)
[2022-08-07] MEDS: TRAMADOL HCL 50 MG TAB PO PRN (18:18)
[2022-08-08] VITALS (7 sets, daily range): BP systolic 120–148; BP diastolic 45–70; PULSE 63–73; RESP 16–17; TEMP 97.3–99.3; O2SAT 98–100
[2022-08-08 06:21] LABS: BASOPHILS % 0.3 % (0.0-1.0); EOSINOPHILS # (AUTO) 0.1 (0.0-0.4); EOSINOPHILS % 1.6 % (0.0-6.0); HEMATOCRIT 26.3 % (34.2-44.1); LYMPHOCYTES # (AUTO) 1.3 (1.0-3.2); LYMPHOCYTES % 20.3 % (18.0-39.1); MEAN CORPUSCULAR HEMOGLOBIN 25.7 pg (28-32); MEAN CORPUSCULAR HGB CONC 30.4 g/dL (31-35); MEAN CORPUSCULAR VOLUME 84.6 fL (81-99); MONOCYTES # (AUTO) 0.3 (0.2-0.8); MONOCYTES % 5.3 % (4.4-11.3); NEUTROPHILS # (AUTO) 4.5 (2.1-6.9); NEUTROPHILS % 72.3 % (38.7-80.0); PLATELET COUNT 199 x10e3/uL (140-360); RED BLOOD COUNT 3.11 x10e6/uL (3.6-5.1); RED CELL DISTRIBUTION WIDTH 15.2 % (11.7-14.4)
[2022-08-08] MEDS: LINEZOLID 600 MG/D5W 300ML 300 ML IV SCH ×2 (09:17→22:26)
[2022-08-09] VITALS (8 sets, daily range): BP systolic 126–157; BP diastolic 51–73; PULSE 66–75; RESP 16–22; TEMP 97–98.2; O2SAT 99–100
[2022-08-09] MEDS: LINEZOLID 600 MG/D5W 300ML 300 ML IV SCH ×2 (09:58→21:14)
[2022-08-09] MEDS: PANTOPRAZOLE SOD 40 MG TABEC PO SCH (21:14)
[2022-08-10 05:05] VITALS: BP 127/63; PULSE 71; RESP 16; TEMP 98.3; O2SAT 99
[2022-08-10 09:28] VITALS: BP 150/69; PULSE 76; RESP 16; TEMP 98.1; O2SAT 99
[2022-08-10] MEDS: PANTOPRAZOLE SOD 40 MG TABEC PO SCH (09:40)
[2022-08-10] MEDS: LINEZOLID 600 MG/D5W 300ML 300 ML IV SCH ×2 (09:40→21:48)
[2022-08-10] MEDS: TRAMADOL HCL 50 MG TAB PO PRN (09:40)
[2022-08-10 12:22] VITALS: BP 142/69; PULSE 70; RESP 16; TEMP 98.1; O2SAT 100
[2022-08-10 16:03] VITALS: BP 146/74; PULSE 67; RESP 15; TEMP 97.9; O2SAT 100
[2022-08-10 21:00] VITALS: BP 152/67; PULSE 72; RESP 17; TEMP 98.3; O2SAT 100
[2022-08-10 21:38] VITALS: BP 152/67; PULSE 72; RESP 17; TEMP 98.3; O2SAT 100
[2022-08-11] VITALS (10 sets, daily range): BP systolic 126–155; BP diastolic 58–72; PULSE 66–79; RESP 15–20; TEMP 97.7–98.7; O2SAT 100
[2022-08-11 06:52] LABS: BASOPHILS % 0.4 % (0.0-1.0); EOSINOPHILS # (AUTO) 0.1 (0.0-0.4); EOSINOPHILS % 1.8 % (0.0-6.0); HEMATOCRIT 31.1 % (34.2-44.1); HEMOGLOBIN 9.3 g/dL (12.0-16.0); LYMPHOCYTES # (AUTO) 1.2 (1.0-3.2); LYMPHOCYTES % 21.9 % (18.0-39.1); MEAN CORPUSCULAR HEMOGLOBIN 25.4 pg (28-32); MEAN CORPUSCULAR HGB CONC 29.9 g/dL (31-35); MONOCYTES # (AUTO) 0.3 (0.2-0.8); MONOCYTES % 4.6 % (4.4-11.3); NEUTROPHILS % 70.9 % (38.7-80.0); PLATELET COUNT 238 x10e3/uL (140-360); RED BLOOD COUNT 3.66 x10e6/uL (3.6-5.1); RED CELL DISTRIBUTION WIDTH 15.1 % (11.7-14.4)
[2022-08-11 07:05] LABS: ALBUMIN 2.8 g/dL (3.5-5.0); ALBUMIN/GLOBULIN RATIO 0.8 (0.8-2.0); ANION GAP 13.1 mmol/L (8-16); CALCIUM 8.6 mg/dL (8.4-10.2); CREATININE, SERUM 0.57 mg/dL (0.57-1.11); POTASSIUM 4.1 mmol/L (3.5-5.1)
[2022-08-11] MEDS: PANTOPRAZOLE SOD 40 MG TABEC PO SCH (09:21)
[2022-08-11] MEDS: LINEZOLID 600 MG/D5W 300ML 300 ML IV SCH ×2 (09:25→09:30)
[2022-08-12] VITALS: BP 143/61; PULSE 80; RESP 17; TEMP 98; O2SAT 98
[2022-08-12 04:00] VITALS: BP 129/62; PULSE 77; RESP 17; TEMP 98.1
[2022-08-12] MEDS: LINEZOLID 600 MG/D5W 300ML 300 ML IV SCH (08:09)
[2022-08-12] MEDS: PANTOPRAZOLE SOD 40 MG TABEC PO SCH (08:09)
[2022-08-12 08:17] VITALS: BP 141/60; PULSE 72; RESP 18; TEMP 98.1; O2SAT 97
[2022-08-12 09:00] VITALS: BP 141/60; PULSE 72; RESP 18; TEMP 98.1; O2SAT 97
== END 2022-08-12 11:11 | disposition home or self-care (01) | DRG 240 ==
LOC: OR 07:05 → PACU V 10:34 → OBSVTOIN 10:34 → MED/SURG3 12:59
PROVIDERS: ADMIT Internal Medicine; ATTEND Internal Medicine
PROC: 0Y6M0Z0 Detachment at Right Foot, Complete, Open Approach (ICD-10-PCS; principal; 2022-08-04 08:53)
DX: I70.261 Atherosclerosis of native arteries of extremities with gangrene, right leg (principal); M86.9 Osteomyelitis, unspecified; Z16.24 Resistance to multiple antibiotics; M67.01 Short Achilles tendon (acquired), right ankle; B95.62 Methicillin resistant Staphylococcus aureus infection as the cause of diseases classified elsewhere; Z89.512 Acquired absence of left leg below knee
CPT/HCPCS: 0223U; 36415; 71046; 76000; 80048; 80053; 82948; 83540; 83735; 84466; 85025; 87040; 87071; 87075; 87186; 87205; 88304; 88307; 88311; 93005; J1100; J1885; J2001; J2020; J2250; J2543; J2710; J7050